=== PATIENT | female | born 1960 | race Caucasian/White ===

== ENCOUNTER → 2017-09-09 10:07 | Outpatient (CLI) | payer OTHER, SELFPAY ==
[2017-09-15 16:13] LABS: Clam <0.10 kU/L (Class 0); Codfish <0.10 kU/L (Class 0); Corn <0.10 kU/L (Class 0); Egg, White <0.10 kU/L (Class 0); Milk (Cow) <0.10 kU/L (Class 0); Peanut <0.10 kU/L (Class 0); SCALLOP <0.10 kU/L (Class 0); Shrimp <0.10 kU/L (Class 0); Soybean <0.10 kU/L (Class 0); Walnut, (Food) <0.10 kU/L (Class 0); Wheat <0.10 kU/L (Class 0)
[2017-09-15 17:09] LABS: SESAME SEED <0.10 kU/L (Class 0)
== END ==
PROVIDERS: Family Provider Family Medicine; PCP Family Medicine; Visit Provider Otolaryngology
DX: T78.40XA Allergy, unspecified, initial encounter (principal)
CPT/HCPCS: 36415; 86003; 86005

== ENCOUNTER 2019-04-08 08:36 | Emergency (ER) | payer OTHER, SELFPAY ==
[2019-04-08 08:38] VITALS: BP 127/85; PULSE 85; RESP 17; TEMP 36.8; O2SAT 95; BMI 23.5
--- NOTE | 2019-04-08 08:57 | ED.VIS.GEN ---
History of Present Illness Chief Complaint: Lower Extremity Injury Informant: Patient Onset: Days Maximum Severity: Mild Narrative: Patient complains of stiffness involving the left leg in a diffuse fashion but primarily laterally over the thigh over the knee related to the fact she has a broken foot and she is been weight wearing a long boot Velcro indicates the boot limits her range of motion she feels constantly stiff, she is file followed by [facility] she is been using vitamins and calcium for this condition and her pain and she feels that is not helping, she presents the emergency department asking if she can receive an injection to help with the stiffness. She has no fever no cough no chest pain no shortness of breath no edema she indicates she was just seen by her physicians and the fracture is healing she points to the lateral foot Past Medical History - Allergies and Home Meds Allergies/Adverse Reactions: Allergies erythromycin base Adverse Reaction (Verified 04/08/19 08:37) Upset Stomach Primary Care Physician: Landry Daniels MD [Primary Care Provider] - Past Medical History: - - Foot fracture no history of DVT or PE Smoking Status: Never smoker Review of Systems General: Denies: Chills, Fever, Sweats Eyes: Denies: Visual changes - bilaterally, Diplopia ENT: Denies: Rhinorrhea, Sore throat Cardiovascular: Denies: Chest pain, Palpitations Respiratory: Denies: Dyspnea, Cough, Dyspnea on exertion Gastrointestinal: Denies: Abdominal pain, Nausea, Vomiting, Diarrhea, Melena, Hematochezia Genitourinary: Denies: Dysuria, Hematuria, Frequency Musculoskeletal: Reports: Extremity Pain. Denies: Back pain Skin: Denies: Rash, Wounds Neurological: Denies: Headache, Weakness, Numbness Physical Exam Vital Signs/Narrative: Vital Signs Temp Pulse Resp BP Pulse Ox 04/08/19 08:38 98.3 F 85 17 127/85 H 95 General: Well nourished, Well developed, No Acute Distress Head: Normocephalic, Atraumatic Eyes: Perrl, EOMI ENT: Moist mucous membranes, No rhinorrhea Neck: Supple, Nontender Cardiovascular: Regular rate, Regular rhythm, No murmurs Respiratory: No distress, CTA bilaterally, Chest nontender Abdomen: Soft, Nontender, Nondistended, Normal bowel sounds Back: Nontender, Normal Inspection Extremities: Nontender, No edema, - - She is wearing a long boot to the left lower extremity the boot was removed her neurovascular function to the foot is completely unremarkable normal she is able dorsi and plantarflex at the ankle she is able move the toe she has pain to the lateral foot is improving her ankle tib-fib calf unremarkable no swelling or edema her knee has full range of motion hip is full range of motion she gets now that she is out of the brace she is able to move the extremity she feels that the stiffness is better she is asking if the extremity can be injected over the greater trochanter left hip and over the ankle region to help with the stiffness I explained that is typically not done through the emergency department Skin: Normal color, No rash Neurological: Alert, Oriented x3, Cranial nerves II-XII grossly intact, Normal Strength, Normal Sensation Psychological: Normal affect, Normal Mood Diagnostic/Tx/Re-eval - Medical Decision Making I had a long conversation with her there is no signs of DVT or neurovascular, as her infection she is actually feeling better now that the brace has been removed I explained to her that she can basically take her foot out of the brace she is been wearing it almost continuously when she is at rest when she is asleep have more range of motion to the lower extremity she should wear it when she is up no weightbearing and follow all the other instructions of her physicians she is not taking anything for the pain or the stiffness not even Tylenol so she will be asked to use Tylenol prescribed Naprosyn as a rescue medicine and she will follow-up with her outpatient providers tomorrow Home stable Impression final Left foot fracture ED Disposition - Plan for ED Patient: Diagnosis: Foot fracture, left Instructions: FRACTURE, Lower Extremity, Hip Strain Prescriptions: Naproxen [Naprosyn] 500 mg PO BID PRN #20 tab Prescription Printed Referrals: Landry Daniels MD [Primary Care Provider] -
[2019-04-08] MEDS: Naproxen 500 MG Tablet PO (09:17)
== END 2019-04-08 09:57 | disposition home or self-care (01) ==
LOC: ED 08:50
PROVIDERS: Emergency Provider Emergency Medicine; Family Provider Family Medicine; PCP Family Medicine
DX: S92.902D Unspecified fracture of left foot, subsequent encounter for fracture with routine healing (principal); X58.XXXD Exposure to other specified factors, subsequent encounter; Z88.1 Allergy status to other antibiotic agents
CPT/HCPCS: 99283

== ENCOUNTER 2022-04-01 11:41 | Emergency (ER) | payer OTHER, SELFPAY ==
[2022-04-01 11:42] VITALS: BP 138/90; PULSE 76; RESP 14; TEMP 36.2; O2SAT 98; BMI 24.4
--- NOTE | 2022-04-01 11:53 | VDLE_ITS ---
Reason For Study: swelling Procedure LEFT This is a venous duplex using B-mode, color GSV is normal. flow and spectral Doppler. CFV is compressible, spontaneous, phasic, Exam performed portable in ED. competent, and demonstrates normal The exam was abbreviated due to the COVID 19 augmentation. protocol. FV is compressible, spontaneous, phasic, The exam was diagnostic. competent and demonstrates normal A preliminary report was called and/or faxed augmentation. to the pt's RN. POP V is compressible, spontaneous, phasic, competent and demonstrates normal augmentation. T/P Trunk is compressible. PTV is compressible. LT PerV is compressible. VL/Venous Duplex US, Unilateral Interpretation Summary There is no evidence of left lower extremity deep vein thrombosis. Left great s aphenous vein appears patent and compressible segmentally. Abbreviated Covid 19 protocol utilized Ordering Physician: Lana Wayne Performed By: Aman Summers RVT
--- NOTE | 2022-04-01 11:55 | EDS_ITS ---
HPI History of Present Illness Chief Complaint: Lower Extremity Injury Detail of Chief Complaint: Left knee swelling Informant: patient Onset/Context/Timing Onset: Yesterday Current Severity: Mild Maximum Severity: Mild Narrative Narrative: Patient presents secondary to left knee swelling. She states when she got home from school yesterday she noted some pain and swelling to her left knee. She elevated her leg and iced it. She does not remember an injury. Does not remember twisting her knee. Today she feels like her knee is swollen and spite of icing and elevating. She does have a family history of blood clots. She is supposed to travel to [place] tomorrow and was concerned about traveling with a possible blood clot. PFSH PFSH Medical History no medical history no medical history Home Medications multivitamin with minerals 1 ea PO DAILY 04/08/19 [History Last Taken Unknown] naproxen 500 mg tablet 500 mg PO BID PRN #20 tabs 04/08/19 [Rx Last Taken Unknown] Allergy/AdvReac Type Severity Reaction Status Date / Time erythromycin base AdvReac Upset Verified 04/01/22 11:42 Stomach Social History Smoking Status: Never smoker ROS ROS ED Constitutional Constitutional ED: Denies chills or fever(s) Eyes Eyes: Denies change in vision or discharge from eye(s) ENT ENT ED: Denies discharge from eye(s), rhinorrhea or sore throat Cardiovascular Cardiovascular: Denies chest pain or palpitations Respiratory/Chest Respiratory/Chest: Denies cough or dyspnea Gastrointestinal Gastrointestinal: Denies abdominal pain, diarrhea, nausea or vomiting Genitourinary Genitourinary ED: Denies difficulty urinating or dysuria Musculoskeletal Musculoskeletal: Reports extremity pain; Denies back pain Integumentary Denies Abrasions or rash Neurologic Neurologic: Denies headache(s) or weakness Allergic/Immunologic Allergic/Immunologic ED: Denies lip swelling or urticaria EXAM Physical Exam Const Vital Signs: 04/01/22 11:42 Temperature 97.1 F L Temperature Source Temporal Pulse Rate 76 Respiratory Rate 14 Blood Pressure 138/90 H Blood Pressure Mean 106 Pulse Ox 98 Oxygen Delivery Method Room Air Positive well nourished and well developed General Appearance ED: well developed HEENT Reports normocephalic and head/scalp atraumatic Eyes PERRL and EOMs intact bilaterally Neck supple Chest Wall inspection of chest normal and palpation of chest normal Resp normal respiratory effort and clear to auscultation bilaterally Cardio regular rate and regular rhythm GI normal to inspection, nondistended, normoactive bowel sounds Palpation: soft Extremity Extremity Narrative: Minimal tenderness to palpation over the anterior knee. Mild edema. Good range of motion. Ligaments tight on testing. No tenderness over the calf or thigh. Strong distal pulses. Neuro oriented x3 and no sensory deficits noted Sensorium / Orientation: alert Motor Exam: strength 5/5 throughout Psych mental status grossly normal Skin no rashes or lesions noted MDM MDM MDM Narrative Medical decision making narrative: Left knee x-ray obtained along with venous ultrasound of the left leg. Radiography Diagnostic Testing: Clinical Impression(s) from Imaging Studies Knee X-Ray 04/01/22 12:07 IMPRESSION: Degenerative arthrosis. Joint effusion. Electronically Signed: Navin Benitez MD at 12:38 EDT , Treatment and Re-Evaluation Narrative: Left knee x-rays per my interpretation reveal arthritic changes with no acute bony finding. Radiology interpretation is reviewed. There is a small joint effusion. Venous ultrasound of the leg reveals no evidence of DVT. Edgardo wrap is applied to the left knee. We discussed light pressure to help fluid reabsorb as well as elevation and ice. She will take anti-inflammatories at home. Return instructions provided. Discharge Plan Triage Chief Complaint: Lower Extremity Injury ED Provider: Lana Wayne Dx/Rx/DC Orders Clinical Impression: Left knee sprain Instructions: ED Knee Sprain Prescriptions: No Action multivitamin with minerals 1 EACH tablet 1 ea PO DAILY naproxen 500 MG tablet 500 mg PO BID PRN Qty: 20 0RF Primary Care Provider: Landry Daniels Referrals: Landry Daniels MD [Primary Care Provider] - 10-14 Days if not better Disposition Disposition: Home, Self Care
--- NOTE | 2022-04-01 12:07 | RAD_ITS ---
STUDY: X-RAY - LEFT KNEE REASON FOR EXAM: Female, 61 years old. Left knee pain and swelling. No history of trauma. TECHNIQUE: 4 view(s) of the knee. COMPARISON: None. FINDINGS: Normal visualized distal femur. Normal visualized proximal tibia and fibula. Normal proximal tibiofibular articulation. There is mild degenerative arthrosis of the medial femorotibial compartment. There is mild degenerative arthrosis of the lateral femorotibial compartment. There is moderate degenerative arthrosis of the patellofemoral articulation. Small joint effusion. RAD/Knee 4 or More Views IMPRESSION: Degenerative arthrosis. Joint effusion. Electronically Signed: Navin Benitez MD at 12:38 EDT ,
[2022-04-01 13:04] VITALS: RESP 16
== END 2022-04-01 13:13 | disposition home or self-care (01) ==
PROVIDERS: Emergency Provider Emergency Medicine; PCP Family Medicine; Visit Provider Emergency Medicine
DX: S83.92XA Sprain of unspecified site of left knee, initial encounter (principal); X58.XXXA Exposure to other specified factors, initial encounter
CPT/HCPCS: 73564; 93971; 99282

== ENCOUNTER → 2023-03-03 | Outpatient (CLI) | payer OTHER, SELFPAY ==
[2023-03-03 10:34] LABS: Absolute Lymphocyte Count 2.13 X10^3/uL (0.83-4.51); Absolute Neutrophil Count 2.1 X10^3/uL (2.0-7.7); Basophil# 0.08 X10^3/uL; Basophil% 1.5 % (0-1); Eosinophil# 0.23 X10^3/uL; Eosinophils% 4.2 % (0-5); Hematocrit 43.4 % (37-47); Hemoglobin 13.7 g/dL (12.0-15.0); Lymphocyte # 2.13 X10^3/ul (0.83-4.51); Lymphocyte % 38.8 % (19-41); Mean Corp Hgb Conc 31.6 g/dL (32-36); Mean Corpuscular Hgb 27.1 pg (27.0-32.0); Mean Corpuscular Volume 85.9 fL (81-99); Mean Platelet Vol. 10.4 fl (6.2-12.0); Monocyte# 0.93 X10^3/uL; Monocyte% 16.9 % (0-10); NRBC Flagged by Analyzer 0 % (0-5); Neutrophil # 2.11 X10^3/uL (2.7-7.7); Neutrophil % 38.4 % (47-70); Platelet Count 241 K/mm3 (150-450); Red Blood Count 5.05 M/mm3 (4.2-5.4); White Blood Count 5.5 K/mm3 (4.4-11.0)
[2023-03-03 11:08] LABS: AST(SGOT) 18 U/L (15-37); Alanine Aminotransfer ALT/SGPT 25 U/L (13-56); Albumin, Serum 3.5 g/dL (3.2-5.0); Alkaline Phosphatase 99 U/L (45-117); Anion Gap 3 (5-15); BUN 12 mg/dL (7-18); BUN/Creat Ratio 14.1 RATIO (10-20); Calcium,Total 8.9 mg/dL (8.5-10.1); Chloride 108 mmol/L (98-107); Cholesterol 220 mg/dL (200); Creatinine, Serum 0.85 mg/dL (0.55-1.02); EST Glomerular Filtration Rate 72 mL/min (>60); Est Glom Filt Rate - Afr Amer 87 mL/min (>60); Globulin 3.4 g/dL (2.2-4.2); Glucose 87 mg/dL (74-106); High Density Lipoprotein 58 mg/dL; Potassium 4.1 mmol/L (3.5-5.1); Protein, Total 6.9 g/dL (6.4-8.2); Sodium Level 140 mmol/L (136-145); Triglycerides 112 mg/dL; Very Low Density Lipoprotein 22 mg/dL (5-40)
== END | disposition home or self-care (01) ==
LOC: BFHLAB 08:14
PROVIDERS: PCP Nurse Practitioner Family; Referring Provider Nurse Practitioner Family; Visit Provider Nurse Practitioner Family
DX: Z00.00 Encounter for general adult medical examination without abnormal findings (principal)
CPT/HCPCS: 36415; 80053; 80061; 85025

== ENCOUNTER 2024-08-03 18:24 | Emergency (ER) | payer OTHER, SELFPAY ==
[2024-08-03 18:25] VITALS: BP 185/115; PULSE 97; RESP 16; TEMP 36.7; O2SAT 98; BMI 24.9
--- NOTE | 2024-08-03 18:38 | EX.ED.UPPERE ---
HPI History of Present Illness Chief Complaint: Bite Narrative Narrative: 63-year-old female, [id number], presents with cat bite to the dorsum of her left hand that she sustained this morning. She states she was trying to take her cat to the vet and it was fighting her. It bit her on the dorsum of the left hand. Since then she has had swelling. She denies any fever or chills. She noticed swelling on the back of her left hand. She believes her tetanus might be up-to-date, within the last 5 to 10 years but is unsure. She denies other injuries. This happened approximately 9 hours ago. Tetanus Immunization: 5-10 years [facility] Medical History no medical history Home Medications ?Medication ?Instructions ?Recorded ?Last Taken ?Type multivitamin with minerals 1 ea PO DAILY 04/08/19 Unknown History naproxen 500 mg tablet 500 mg PO BID PRN #20 tabs 04/08/19 Unknown Rx amoxicillin 875 mg-potassium 1 tab PO BID 10 days #20 tabs 08/03/24 Unknown Rx clavulanate 125 mg tablet ondansetron 4 mg disintegrating 4 mg PO Q8H PRN PRN Nausea #20 tabs 08/03/24 Unknown Rx tablet Allergy/AdvReac Type Severity Reaction Status Date / Time doxycycline Allergy Intermediate Swelling Verified 08/03/24 18:28 amoxicillin AdvReac Mild Vomiting Verified 08/03/24 18:28 erythromycin base AdvReac Upset Verified 08/03/24 18:25 Stomach Social History Smoking Status: Never smoker ROS ROS ED ROS Narrative Review of systems positive for cat bite to dorsum of left hand. Positive pain in left hand with swelling. No fevers or chills, no nausea or vomiting. No other injury. She states it drained clear liquid this morning. EXAM Physical Exam Narrative Exam Narrative: Afebrile. Vital signs noted. Nontoxic-appearing. Focused physical examination reveals 2 puncture rizzo on the dorsum of her left hand with mild swelling underneath. She has full range of motion of her fingers and wrist. No lymphangitic streaking, no axillary lymphadenopathy. Palpable radial pulse. Cardiovascular examination regular rate and rhythm. Lungs clear to auscultation bilaterally. Abdomen soft and nontender. Const Vital Signs: 08/03/24 18:25 Temperature 98.1 F Temperature Source Oral Pulse Rate 97 Respiratory Rate 16 Blood Pressure 185/115 H Blood Pressure Mean 138 Pulse Ox 98 Oxygen Delivery Method Room Air MDM MDM MDM Narrative Medical decision making narrative: No feel differential diagnosis is applicable in this case. She has known cat bite to the dorsum of her left hand. X-rays will be obtained of the left hand to rule out foreign body and I have low suspicion for any fracture. Her tetanus immunization was updated. Additionally, I discussion with her regarding antibiotics. She states amoxicillin makes her vomit within an hour. I do feel that the medication of choice would be Augmentin as prophylaxis. She was given a Zofran ODT, and an Augmentin 875 mg tablet to take here. I do feel that she merits outpatient trial and that she does not require immediate laboratory work or IV antibiotics. X-ray of the left hand interpreted by myself independently shows no evidence of acute fracture or foreign body. I reviewed the radiology report which confirms my independent interpretation and comments on soft tissue swelling with small amount of air in the hand. I do not feel that this is necrotizing fasciitis. Patient was given a Zofran tablet and then took the Augmentin tablet. She was observed in the emergency department. Should she not tolerate the amoxicillin I will attempt to write her for a different antibiotic. Through shared decision making, she would like to try outpatient trial on antibiotics. I find this reasonable as her cat bite was only today as she is not showing rapid signs of progression of infection. She was referred back to her primary care provider and also given the number to plastics/hand. Upon repeat examination at approximately 2044, she feels well and is not vomiting. I wrote her prescription for Augmentin 875 mg to take twice a day for 10 days as well as 20 Zofran ODT's. Return instructions reviewed. Disposition is discharged in stable condition. History & Record Review Discussion w/independent historian: Patient Radiography X-Ray: Read by ED Physician, Read by Radiologist and No Fracture Discharge Plan Triage Chief Complaint: Bite ED Provider: Eliseo Vasquez Dx/Rx/DC Orders Clinical Impression: Cat bite of hand, Immunization, tetanus-diphtheria Instructions: ED Cat Bite Prescriptions: New amoxicillin-pot clavulanate 875-125 mg tablet 1 tab PO BID 10 Days Qty: 20 0RF ondansetron 4 mg tablet,disintegrating 4 mg PO Q8H PRN PRN (Reason: Nausea) Qty: 20 0RF No Action multivitamin with minerals 1 EACH tablet 1 ea PO DAILY naproxen 500 MG tablet 500 mg PO BID PRN Qty: 20 0RF Primary Care Provider: Reny Brown Referrals: Michael James MD [Med Staff - Active Staff] - 3-5 Days Reny Brown [employer] [Primary Care Provider] - 3-5 Days Activity Restrictions/Additional Instructions: Return to the emergency department with fever, red streak up your arm, increased swelling of your hand and/or fingers. Take antibiotics as directed. Have a wound check with either your primary care provider or plastic surgery/hand. Elevate your hand when possible. Print Language: [place] Disposition Disposition: Home, Self Care
--- NOTE | 2024-08-03 18:40 | RAD_ITS ---
EXAM: XR LEFT HAND COMPLETE, 3 OR MORE VIEWS CLINICAL INDICATION: Cat bite TECHNIQUE: Frontal, lateral and oblique views of the left hand. COMPARISON: No relevant prior studies available. FINDINGS: BONES/JOINTS: Unremarkable. Preservation of the joint space. No sclerotic or destructive changes observed. No acute or healing fracture or malalignment. SOFT TISSUES: Soft tissue swelling and gas along the dorsal aspect of the metacarpals. No radiopaque foreign body. RAD/Hand Min 3 Views IMPRESSION: 1. Soft tissue swelling and gas along the dorsal aspect of the metacarpals. 2. No acute or healing fracture or malalignment. Electronically Signed: Klever Cespedes MD at 19:38 EST ,
[2024-08-03] MEDS: Ondansetron ODT 4 MG Tablet PO (18:44)
[2024-08-03] MEDS: Diphth,Pertuss(Acell),Tet Vac 0.5 ML Vial IM (18:45)
[2024-08-03] MEDS: Amox/Clavulanate 875 MG Tablet PO (19:48)
[2024-08-03 20:52] VITALS: BP 160/74; PULSE 81; RESP 16; TEMP 36.9; O2SAT 98
== END 2024-08-03 20:56 | disposition home or self-care (01) ==
PROVIDERS: Emergency Provider Emergency Medicine; PCP Nurse Practitioner Family; Visit Provider Emergency Medicine
DX: S61.432A Puncture wound without foreign body of left hand, initial encounter (principal); M79.89 Other specified soft tissue disorders; W55.01XA Bitten by cat, initial encounter; Y93.K9 Activity, other involving animal care; Y92.89 Other specified places as the place of occurrence of the external cause; Z23 Encounter for immunization
CPT/HCPCS: 73130; 90471; 90715; 99284

== ENCOUNTER 2024-08-05 09:22 | Inpatient (IN) | payer OTHER, SELFPAY ==
[2024-08-05 09:23] VITALS: BP 163/90; PULSE 77; RESP 16; TEMP 36.6; O2SAT 100; BMI 25.6
[2024-08-05 09:24] VITALS: BP 163/90; PULSE 75; RESP 16; TEMP 36.6; O2SAT 100
--- NOTE | 2024-08-05 09:58 | ED.RN ---
PT ON AUGMENTIN AND ZOFRAN AFTER BEING SEEN HERE IN THE ED ON Tuesday08/03/24. SWELLING AND REDNESS HAS WORSENED AND LESS MOVEMENT IN HER FINGERS.
--- NOTE | 2024-08-05 10:04 | EX.ED.UPPERE ---
HPI History of Present Illness Chief Complaint: Bite Narrative Narrative: 63-year-old female presents after being seen in the emergency department by myself 2 days ago after a cat bite. She had been taking her cat to the vet, and it bit her on the dorsum of the left hand. She is right-hand dominant. She was placed on Augmentin, and presents today with increased swelling of her left hand on the dorsum. She feels the redness is spreading up towards her wrist. She may have felt feverish on Tuesday, but that resolved. She presents for worsening cat bite to the dorsum of her left hand. PFSH PFS Home Medications ?Medication ?Instructions ?Recorded ?Last Taken ?Type multivitamin with minerals 1 ea PO DAILY 04/08/19 08/04/24 History amoxicillin 875 mg-potassium 1 tab PO BID 10 days #20 tabs 08/03/24 08/05/24 Rx clavulanate 125 mg tablet Allergy/AdvReac Type Severity Reaction Status Date / Time doxycycline Allergy Intermediate Swelling Verified 08/05/24 09:26 amoxicillin AdvReac Mild Vomiting Verified 08/05/24 09:26 erythromycin base AdvReac Upset Verified 08/05/24 09:26 Stomach Social History Smoking Status: Never smoker ROS ROS ED ROS Narrative Constitutional: Subjective fever-resolved, no chills. Abdominal: No abdominal pain. Intermittent nausea. No vomiting. Musculoskeletal: Increasing swelling dorsum of left hand with increasing redness from cat bite. No axillary pain. Neurologic: No headaches. No dizziness. No lightheadedness. Skin: No rash. Increasing redness to level of wrist. No red streaking up arm. EXAM Physical Exam Narrative Exam Narrative: Afebrile. Vital signs noted. Nontoxic-appearing. Increasing swelling dorsum of left hand with mild erythema to level of wrist. Full range of motion of left wrist. Palpable radial pulse. Mild swelling to digits. No evidence of tenderness on palm of hand. Const Vital Signs: 08/05/24 09:23 08/05/24 09:24 Temperature 97.8 F 97.8 F Temperature Source Oral Oral Pulse Rate 77 75 Respiratory Rate 16 16 Blood Pressure 163/90 H 163/90 H Blood Pressure Mean 114 114 Pulse Ox 100 100 Oxygen Delivery Method Room Air Room Air MDM MDM MDM Narrative Medical decision making narrative: Laboratory work will be drawn. Differential diagnosis would include cellulitis versus deep space infection. I have low concern for extensor or flexor tenosynovitis based on her examination. She has no palm tenderness, no circumferential swelling of her digits. She declined any analgesics. I reviewed her laboratory work and she has normal white count. BMP grossly unremarkable. She was started on Unasyn intravenously. I discussed the patient with Dr. Montoya for admission to the medical surgical floor for cellulitis of her hand/cat bite to dorsum of left hand and failed outpatient treatment. Disposition is admit in stable condition. History & Record Review Discussion w/independent historian: Patient Management Discussion w/another healthcare provider: Hospitalist (Dr. Alexandr Montoya) Discharge Plan Dx/Rx/DC Orders Clinical Impression: Cat bite of hand, Cellulitis, Failure of outpatient treatment Disposition Disposition: Acute Care Hospital [facility]
[2024-08-05 10:16] LABS: Absolute Lymphocyte Count 1.89 X10^3/uL (0.83-4.51); Basophil# 0.04 X10^3/uL; Basophil% 0.5 % (0-1); Eosinophil# 0.45 X10^3/uL; Eosinophils% 5.6 % (0-5); Hematocrit 41.3 % (37-47); Hemoglobin 13.6 g/dL (12.0-15.0); Lymphocyte # 1.89 X10^3/ul (0.83-4.51); Lymphocyte % 23.4 % (19-41); Mean Corp Hgb Conc 32.9 g/dL (32-36); Mean Corpuscular Hgb 27.6 pg (27.0-32.0); Mean Corpuscular Volume 83.8 fL (81-99); Monocyte# 0.72 X10^3/uL; Monocyte% 8.9 % (0-10); NRBC Flagged by Analyzer 0 % (0-5); Neutrophil # 4.95 X10^3/uL (2.7-7.7); Neutrophil % 61.2 % (47-70); Platelet Count 242 K/mm3 (150-450); RBC Distribution Width CV 14.1 % (11.6-14.6); RBC Distribution Width SD 42.9 fl (35.1-43.9); Red Blood Count 4.93 M/mm3 (4.2-5.4); White Blood Count 8.1 K/mm3 (4.4-11.0)
[2024-08-05 10:24] VITALS: BP 122/83; PULSE 62; RESP 16; TEMP 36.6; O2SAT 96
[2024-08-05 10:27] LABS: Anion Gap 3 (5-15); BUN 12 mg/dL (7-18); BUN/Creat Ratio 14.2 RATIO (10-20); Calcium,Total 8.4 mg/dL (8.5-10.1); Chloride 111 mmol/L (98-107); Creatinine, Serum 0.84 mg/dL (0.55-1.02); EST Glomerular Filtration Rate 72 mL/min (>60); Est Glom Filt Rate - Afr Amer 87 mL/min (>60); Estimated Creatinine Clearance 71.64 ml/min; Glucose 103 mg/dL (74-106); Potassium 3.9 mmol/L (3.5-5.1); Sodium Level 141 mmol/L (136-145)
[2024-08-05] MEDS: Ampicillin/Sulbactam 3 GM in 0.9% Normal Saline (100mL MB+) 100 ML IV ×2 (10:33→17:42)
--- NOTE | 2024-08-05 10:39 | PCM.HP.STD ---
HPI - General General Date of Admission: 08/05/24 Date of Service: 08/05/24 Chief Complaint: Left hand swelling HPI Narrative DELIA LOZA, is a 63 F in relatively good health who presents left hand swelling. Patient apparently sustained a cat bite to the dorsum of the left hand 2 days prior to her admission. Was seen in the emergency department discharged on Augmentin presented back following worsening of symptoms. Denied any subjective fever no chills. An assessment of cat bite with left hand cellulitis having failed outpatient treatment made admitted to regular nursing floor for further management [facility] Home Medications ?Medication ?Instructions ?Recorded ?Last Taken ?Type multivitamin with minerals 1 ea PO DAILY 04/08/19 08/04/24 History amoxicillin 875 mg-potassium 1 tab PO BID 10 days #20 tabs 08/03/24 08/05/24 Rx clavulanate 125 mg tablet Allergy/AdvReac Type Severity Reaction Status Date / Time doxycycline Allergy Intermediate Swelling Verified 08/05/24 09:26 amoxicillin AdvReac Mild Vomiting Verified 08/05/24 09:26 erythromycin base AdvReac Upset Verified 08/05/24 09:26 Stomach Social History Smoking Status: Never smoker ROS ROS Narrative GENERAL: denies fever, chills, night sweats, weight loss, anorexia HEENT: denies headache, sinus congestion, or drainage, dysphagia RESPIRATORY: denies cough, sputum production, shortness of breath, dyspnea on exertion CARDIAC: denies chest pain, palpitations, orthopnea, PND GASTROINTESTINAL: denies abdominal pain, nausea, vomiting, melena, GENITOURINARY: denies dysuria, urgency, frequency, heamaturia EXTREMITY: denies swelling MUSCULOSKELETAL: denies current joint pain or tenderness NEUROLOGIC: denies focal numbness, weakness, tingling HEMATOLOGIC: denies easy bruising and/or hemorrhage INTEGUMENT: denies rashes PSYCHIATRIC: denies suicidal or homicidal ideation Vital Signs Vital Signs Vital Signs: 08/05/24 09:23 08/05/24 09:24 08/05/24 10:24 Temperature 97.8 F 97.8 F 97.9 F Temperature Source Oral Oral Oral Pulse Rate 77 75 62 Respiratory Rate 16 16 16 Blood Pressure 163/90 H 163/90 H 122/83 H Blood Pressure Mean 114 114 96 Pulse Ox 100 100 96 Oxygen Delivery Method Room Air Room Air Room Air Weight Weight: 78.789 kg Body Mass Index (BMI) 25.6 Physical Exam Narrative GENERAL: cooperative HEENT: Atraumatic; normocephalic EYES; Anicteric, Normal Conjunctiva NECK; supple, normal thyroid, RESPIRATORY: Diminished to auscultation CARDIOVASCULAR: Regular S1 S2, GI: soft, normoactive bowel sounds, : No Renal angle tenderness; EXTREMITIES: Swelling and erythema involving the dorsal surface of the left hand MUSCULOSKELETAL: no muscle wasting NEURO: Awake; no lateralizing signs. SKIN: As described above PSYCH; Flat affect Results Lab / Micro Data 08/05/24 10:05 08/05/24 10:05 Labs: Laboratory Results - last 24 hr 08/05/24 10:05: WBC 8.1, RBC 4.93, Hgb 13.6, Hct 41.3, MCV 83.8, MCH 27.6, MCHC 32.9, RDW Std Deviation 42.9, RDW Coeff of Joanna 14.1, Plt Count 242, MPV 10.0, Immature Gran % (Auto) 0.400, Neut % (Auto) 61.2, Lymph % (Auto) 23.4, Amador % (Auto) 8.9, Eos % (Auto) 5.6 H, Baso % (Auto) 0.5, Absolute Neuts (auto) 5.0, Absolute Lymphs (auto) 1.89, Nucleated RBC % 0, Sodium 141, Potassium 3.9, Chloride 111 H, Carbon Dioxide 27.0, Anion Gap 3 L, BUN 12, Creatinine 0.84, Estim Creat Clear Calc 71.64, Est GFR (MDRD) Af Amer 87, Est GFR (MDRD) Non-Af 72, BUN/Creatinine Ratio 14.2, Glucose 103, Calcium 8.4 L Assessment & Plan Assessment/Plan (1) Failure of outpatient treatment: (2) Cellulitis: (3) Cat bite of hand: PLAN: Plan Patient is a 63-year-old lady presenting with cat bite 1. Left hand cellulitis -following a cat bite patient did fail outpatient treatment with Augmentin. Admitted to regular nursing floor started on Augmentin Unasyn 3. DVT prophylaxis ? Low risk to encourage early ambulation Charges/Coding Visit Charges Inpatient E&M: 43986 Init Hosp L1
[2024-08-05 11:00] VITALS: BP 136/86; PULSE 53; RESP 18; TEMP 36.6; O2SAT 98
[2024-08-05 11:24] VITALS: BMI 25.6
[2024-08-05] MEDS: 0.9% Normal Saline (100mL Bag) 100 ML 15 ML IV (17:42)
[2024-08-05 17:43] VITALS: BP 121/70; PULSE 70; RESP 18; TEMP 36.8; O2SAT 95
[2024-08-05 20:48] VITALS: BP 147/90; PULSE 59; RESP 18; TEMP 36.3; O2SAT 97
[2024-08-06] MEDS: Ampicillin/Sulbactam 3 GM in 0.9% Normal Saline (100mL MB+) 100 ML IV ×3 (00:09→12:24)
[2024-08-06 02:30] VITALS: BP 118/77; PULSE 52; RESP 16; TEMP 36.1; O2SAT 97
[2024-08-06] MEDS: 0.9% Normal Saline (100mL Bag) 100 ML 15 ML IV (05:27)
[2024-08-06 06:29] LABS: Absolute Lymphocyte Count 2.19 X10^3/uL (0.83-4.51); Basophil# 0.05 X10^3/uL; Basophil% 0.8 % (0-1); Eosinophils% 7.8 % (0-5); Hematocrit 39.5 % (37-47); Hemoglobin 12.3 g/dL (12.0-15.0); Lymphocyte # 2.19 X10^3/ul (0.83-4.51); Lymphocyte % 34.1 % (19-41); Mean Corp Hgb Conc 31.1 g/dL (32-36); Mean Corpuscular Hgb 26.4 pg (27.0-32.0); Mean Corpuscular Volume 84.8 fL (81-99); Mean Platelet Vol. 10.2 fl (6.2-12.0); Monocyte# 0.69 X10^3/uL; Monocyte% 10.7 % (0-10); NRBC Flagged by Analyzer 0 % (0-5); Neutrophil # 2.98 X10^3/uL (2.7-7.7); Neutrophil % 46.4 % (47-70); Platelet Count 220 K/mm3 (150-450); RBC Distribution Width CV 14.1 % (11.6-14.6); RBC Distribution Width SD 43.6 fl (35.1-43.9); Red Blood Count 4.66 M/mm3 (4.2-5.4); White Blood Count 6.4 K/mm3 (4.4-11.0)
[2024-08-06 07:01] LABS: Anion Gap 3 (5-15); BUN 10 mg/dL (7-18); BUN/Creat Ratio 13.3 RATIO (10-20); Calcium,Total 8.3 mg/dL (8.5-10.1); Chloride 111 mmol/L (98-107); Creatinine, Serum 0.75 mg/dL (0.55-1.02); EST Glomerular Filtration Rate 82 mL/min (>60); Est Glom Filt Rate - Afr Amer 100 mL/min (>60); Estimated Creatinine Clearance 80.24 ml/min; Glucose 103 mg/dL (74-106); Magnesium 2.1 mg/dL (1.6-2.6); Phosphorus 3.8 mg/dL (2.5-4.9); Sodium Level 142 mmol/L (136-145)
[2024-08-06 07:48] VITALS: BP 116/79; PULSE 60; RESP 18; TEMP 36.6; O2SAT 94
--- NOTE | 2024-08-06 08:21 | WOUNDNOTE ---
wound photo: left hand
--- NOTE | 2024-08-06 08:21 | WOUNDNOTE ---
skin photo: left elbow
--- NOTE | 2024-08-06 08:23 | WOUNDNOTE ---
In to assess the left hand. patient was bitten by her cat approx 3 days ago. Pt states later on in the day she was bitten she noticed her hand becoming more red and swollen. pt came to the ED that day and was placed on antibiotics and sent home. pt presented back to the ED a couple days later with increased redness. Pt feels today it appears improved. pt does have a reddened area to the left elbow now. there is no streaking noted. bilateral elbows with some redness and dry skin noted. slight edema noted to the left. may not be related to the hand. will monitor. see wound/skin photos.
--- NOTE | 2024-08-06 10:48 | CASEMGMT ---
KELLY BERNAL Assessment: Face to Face with pt for initial transition planning/care coordination assessment. RN GABE introduced self and role at [facility], pt voices understanding and consents to assessment. Pt is A&O x4 and answers all questions appropriately at this time. Pt sitting up in bed in no distress. Care providers, pharmacy, and demographics verified/updated. Admitting Dx: cat bite Strata Score: 1 PCP:Kevin Specialists:alison Cantu; dae Arciniega; ANGELA Hebert [facility]acy: [facility] Insurance: MMO Prescription Benefit: yes LNOK: Gilbert Mendez, ; Radha Castillo, mother Living Arrangements: Pt lives with in a two story home with 3 steps to enter. Pt reports she is I in ADLs/IADLs and denies concerns at home. Transportation: Pt drives self and denies concerns with transportation. DME:Denies HHC/SNF: Denies hx of Pt states no concerns with going home at time of dc. Pt states no further concerns/needs. CM to follow. Advised pt to ask CM if any further questions/concerns/needs arise, voices understanding. Pt Goal: Home Plan: Home Jean-Claude MENDOZA CM
--- NOTE | 2024-08-06 11:35 | PCM.DC ---
Discharge Instructions Diet Discharge Diet: No restrictions DC O2, CPAP, BIPAP needs Home O2 Discharge instructions: No Dressing / Incision Discharge Activity: Return to Normal Activity Weight Bearing Status: Weight bearing as tolerated Dressing / Incision Call your doctor if you observe: Fever of 101 or Higher, Coldness, Increased Pain, Numbness or Tingling, Change in Color, Inability to urinate, Inability to have a bowel movement, Shortness of breath, Dizziness, Fainting spells, Swelling in the ankles, Chest pain, Prolonged hiccupping, Increased palpitations (irregular heartbeat) and Calf discomfort Follow Up Care When: IN 2 WEEKS Test Results: Test results from this visit will be discussed in further detail at your follow-up appointment, if applicable. Discharge Plan Admission Admit Date/Time: 08/05/24 10:32 Attending Provider: Chu Rader Primary Care Provider: Reny Brown Consulting Providers: Alexandr Montoya Discharge Orders/Prescriptions Prescriptions: New acetaminophen 500 mg Tablet 1,000 mg PO Q8 Qty: 0 0RF Rx Instructions: 1 for moderate pain to 2 tablet for severe pain respectively every Q8 hourly for 1 week Continued multivitamin with minerals 1 EACH tablet 1 ea PO DAILY amoxicillin-pot clavulanate 875-125 mg tablet 1 tab PO BID 7 Days Qty: 14 0RF Referrals / Follow Up: Michael James MD [Med Staff - Active Staff] - 08/16/24 9:00 am (pt see in 1week to 10days) Reny Brown, ELECTRIC SHOVEL OPERATOR-C [Primary Care Provider] - Disposition Disposition (needs filled in before D/C Order can be placed): Home, Self Care
[2024-08-06] MEDS: 0.9% Saline Lock 10 ML Syringe IV (12:24)
--- NOTE | 2024-08-06 13:10 | DS.PCM_ITS ---
Providers Date of Admission: 08/05/24 Date of Discharge: 08/06/24 Primary Care Physician: ANJUM Escamilla Reason For Visit: CAT BITE Diagnosis Discharge Diagnosis (1) Failure of outpatient treatment: Status: Acute Code(s): Z78.9 - Other specified health status (2) Cellulitis: Status: Acute Code(s): L03.90 - Cellulitis, unspecified (3) Cat bite of hand: Status: Acute Code(s): S61.459A - Open bite of unspecified hand, initial encounter; W55.01XA - Bitten by cat, initial encounter Plan Patient is a 63-year-old lady presenting with cat bite. She stated it was her pet dog 1. Left hand cellulitis -following a cat bite failure of outpatient treatment: Patient was admitted to the floor. Started on IV Unasyn. Cellulitis more on the dorsal aspect of the left hand which is almost healed. There is 1 small area of tenderness otherwise no fluctuation or redness. Patient discharged on 1 week of Augmentin. Advised follow-up with plastic surgeon Dr. Horne on 08/16/2024. 3. DVT prophylaxis ? Low risk to encourage early ambulation Medications at Discharge Home Medications multivitamin with minerals 1 ea PO DAILY 04/08/19 acetaminophen 500 mg tablet 1,000 mg (2 x 500 mg) PO Q8 #0 tabs 08/06/24 amoxicillin 875 mg-potassium clavulanate 125 mg tablet 1 tab PO BID 1 week #14 tabs 08/06/24 Physical Exam Narrative Seen and examined. No fever. Redness has improved. Physical exam General: Alert, Oriented x3, Cooperative HEENT: Atraumatic, PERRLA, EOMI, Normocephalic Oral: No Gingival or Mucosal Lesions/ Ulcerations Neck: Supple, No JVD, Negative Carotid Bruits Chest wall/Lungs: Air entry diminished in bilateral lung bases. No crepitation/rhonchi Cardiovascular: Regular rate, Regular Rhythm, Normal S1, Normal S2, No M/G/R Abdomen: Bowel Sounds Present, Soft, Non Tender, Non-Distended : No dysuria. No renal angle tenderness. No suprapubic tenderness. Extremities: No edema, Capillary Refill Less than 3 Seconds Skin: Skin demarcation area shows much improvement of redness erythema almost resolved. 1 small point tenderness around second extensor tendon but no fluctuation. Musculoskeletal: No Tenderness to Palpation of Joints or Extremities Neurological: Cranial nerves II-XII grossly intact, DTR 2+/4. No acute focal neurological deficit. Psych/Mental Status: Normal Affect, Appropriate. Weight / BMI Weight Weight: 173 lb 11.2 oz Body Mass Index (BMI) 25.6 ABG / Lab / Microbiology Data 08/06/24 06:09 08/06/24 06:09 Laboratory: Laboratory Results - last 24 hr 08/06/24 06:09: WBC 6.4, RBC 4.66, Hgb 12.3, Hct 39.5, MCV 84.8, MCH 26.4 L, M CHC 31.1 L D, RDW Std Deviation 43.6, RDW Coeff of Joanna 14.1, Plt Count 220, MPV 10.2, Immature Gran % (Auto) 0.200, Neut % (Auto) 46.4 L, Lymph % (Auto) 34.1, M benedicto % (Auto) 10.7 H, Eos % (Auto) 7.8 H, Baso % (Auto) 0.8, Absolute Neuts (auto) 3.0, Absolute Lymphs (auto) 2.19, Nucleated RBC % 0, Sodium 142, Potassium 4.0, Chloride 111 H, Carbon Dioxide 28.0, Anion Gap 3 L, BUN 10, Creatinine 0.75, Estim Creat Clear Calc 80.24, Est GFR (MDRD) Af Amer 100, Est GFR (MDRD) Non-Af 82, BUN/Creatinine Ratio 13.3, Glucose 103, Calcium 8.3 L, Phosphorus 3.8, Magnesium 2.1 D/C Instructions Discharge Diet: No restrictions Weight Bearing Status: Weight bearing as tolerated Call your doctor if you observe: Fever of 101 or Higher, Coldness, Increased Pain, Numbness or Tingling, Change in Color, Inability to urinate, Inability to have a bowel movement, Shortness of breath, Dizziness, Fainting spells, Swelling in the ankles, Chest pain, Prolonged hiccupping, Increased palpitations (irregular heartbeat) and Calf discomfort DC O2, CPAP, BIPAP Needs Home O2 Discharge instructions: No When: IN 2 WEEKS Meaningful Use Info Meaningful Use Meaningful Use Diagnoses (Choose all that apply): None applicable Ischemic Stroke Statin Dosing Therapy Reference: STATIN DOSE THERAPY REFERENCE: * Patients > 75 years receive moderate or high dose statin therapy. * Patients 75 years or YOUNGER should receive HIGH intensity statin dose unless contraindicated. You will be required to document reason for non-treatment if statin daily dose does not meet guidelines. HIGH DOSE STATIN THERAPY DAILY Atorvastatin > than or = to 40 mg Rosuvastatin > than or = to 20 mg Amlodipine + Atorvastatin > than or = to 2.5/40 mg Ezetimibe + Simvastatin 10/80 mg Simvastatin 80mg Discharge Plan Admission Admit Date/Time: 08/05/24 10:32 Attending Provider: Chu Rader Primary Care Provider: Reny Brown Consulting Providers: Alexandr Montoya Discharge Orders/Prescriptions Prescriptions: New acetaminophen 500 mg Tablet 1,000 mg PO Q8 Qty: 0 0RF Rx Instructions: 1 for moderate pain to 2 tablet for severe pain respectively every Q8 hourly for 1 week Continued multivitamin with minerals 1 EACH tablet 1 ea PO DAILY amoxicillin-pot clavulanate 875-125 mg tablet 1 tab PO BID 7 Days Qty: 14 0RF Referrals / Follow Up: Michael James MD [Med Staff - Active Staff] - 08/16/24 9:00 am (pt see in 1week to 10days) Reny Brown, CONGRESSIONAL REPRESENTATIVE-C [Primary Care Provider] - Disposition Disposition (needs filled in before D/C Order can be placed): Home, Self Care Charges/Coding Visit Charges Inpatient E&M: [id number] Disch Hosp >30min
[2024-08-06 13:27] VITALS: BP 131/96; PULSE 74; RESP 18; TEMP 36.8; O2SAT 94
--- NOTE | 2024-08-06 13:39 | PHA.DC.MR.R ---
Pharmacy [place] Med Reconciliation Pharmacy Service has performed discharge medication reconciliation for this patient. The patient's discharge medication list was reviewed for discrepancies and discrepancies were resolved. Medications at Discharge Home Medications multivitamin with minerals 1 ea PO DAILY 04/08/19 acetaminophen 500 mg tablet 1,000 mg (2 x 500 mg) PO Q8 #0 tabs 08/06/24 amoxicillin 875 mg-potassium clavulanate 125 mg tablet 1 tab PO BID 1 week #14 tabs 08/06/24
== END 2024-08-06 14:03 | disposition home or self-care (01) | DRG 605 ==
LOC: ED 10:35 → MS3 10:51
PROVIDERS: Admitting Provider Internal Medicine; Emergency Provider Emergency Medicine; PCP Nurse Practitioner Family; Visit Provider Internal Medicine
DX: S61.452A Open bite of left hand, initial encounter (principal); L03.114 Cellulitis of left upper limb; W55.01XA Bitten by cat, initial encounter
CPT/HCPCS: 36415; 80048; 83735; 84100; 85025; 99285; A4216; J0295